=== PATIENT | male | born 1950 | race African-American/Black ===

== ENCOUNTER 2017-10-06 01:25 | Inpatient (IN) | payer OTHER ==
[~2017-10-06] VITALS: Ht 172.7 cm; Wt 72.6 kg
--- NOTE | ~2017-10-06 | EEG ---
[facility] [place] [address] ELECTROENCEPHALOGRAM Name: FRANSISCO ARAUZ JR Room #: 429-P ADM IN M.R.#: [id number] Admission: 10/06/17 Attend Phys: Gurdeep Noyola MD Discharge: Date of : 50 Report #: [id number] THIS REPORT FOR: //name// CC: Gurdeep Noyola [facility] DATE OF SERVICE: 10/06/2017 This patient is being evaluated for altered mental status. He has a history of seizure. EEG was done by placing the electrode by standard 10/20 system of electrode placement. Both referential and sequential montages were used for recording. Background activity is about 9 Hz and 30 microvolts. It is intermixed with theta range slowing on both sides. The patient became drowsy that was associated with bilateral slowing and vertex sharp waves. Photic stimulation was unremarkable. The patient continued to demonstrate sporadic random sharper activity coming from both sides. IMPRESSION: This is a moderately abnormal EEG because it is intermixed with theta range slowing on both sides. That is a nonspecific finding which can occur with encephalopathy, effect of psychotropic medication, dementia, etc. Some sporadic sharper activity is present, which may represent seizure, but no status epilepticus was noticed. Thank you very much for this referral. By: [id number] Calvin Segura MD /nt
--- NOTE | ~2017-10-06 | EKG ---
[address] [address] ELECTROCARDIOGRAM REPORT Name: JANIDarlingFRANSISCO Room #: 170-9 ADM IN M.R.#: [id number] Admission: 10/06/17 Attend Phys: Gurdeep Noyola MD Discharge: Date of : 50 Report #: [id number] THIS REPORT FOR: //name// 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
--- NOTE | ~2017-10-06 | HC ---
[facility] [place] [address] CONSULTATION Name: FRANSISCO ARAUZ JR Room #: 429-P ADM IN M.R.#: [id number] Admission: 10/06/17 Attend Phys: Gurdeep Noyola MD Discharge: Date of : 50 Report #: [id number] THIS REPORT FOR: //name// CC: Gurdeep Noyola [place] DATE OF SERVICE: 10/06/2017 HISTORY OF PRESENT ILLNESS: This is a 67-year-old male patient who is unable to provide any history at all. He was admitted with altered mental status. It looks like there may be some history that he passed out. He was found unresponsive. It is not clear what happened and what brought it on. Presently, he is severely confused. REVIEW OF SYSTEMS: I carried out 14-point review of system in this patient. This patient has seen multiple neurologists in the past including myself. He has a known history of dementia and seizure disorder. What medication he is on I am not certain. It looks like he is on Dilantin. The records indicate he is on Vimpat, but on the medicine sheet it indicates he is on Topamax. He cannot tell which medicine he is on. He does not know when his last seizure was. He apparently has an advanced dementia and has been seen by multiple physicians in the past. He has come in with rhabdo in the past and he had a history of acute renal injuries in the past, even now his creatinine is 2.0. He does not provide any other history and rest of the 14-point review of system was carried out from the record. He has a history of seizure. He has a history of dementia. He was on Keppra and it looks like Keppra has been discontinued. He has a kidney problem. Otherwise, the best history I can get it does not look like he is having any new eye, ENT, cardiac, respiratory, GI, , musculoskeletal, constitutional, dermatological, hematological, throat, allergic symptoms, but he barely talks and the history is very incomplete in that regard. He does have a psychiatric history in the past, how much that is contributing to the present problem is not clear. FAMILY HISTORY: Unavailable from him. SOCIAL HISTORY: [facility] in a [facility]. PAST MEDICAL HISTORY: Positive for seizure. PHYSICAL EXAMINATION: Indicate he does not talk, so it is not possible to tell about orientation, memory or fund of knowledge. Cranial nerve examination 2-12 was attempted. He will not cooperate with any of those examinations, but I do not see much focality. I tried to look at the fundus, he would not cooperate. It looks like he can move all 4 extremities, but I cannot do the sensory reflex or tone because he would not relax. He did not understand the instruction for [facility] [address] [place] [address] CONSULTATION Name: FRANSISCO ARAUZ Room #: 429-P ADM IN M.R.#: [id number] Admission: 10/06/17 Attend Phys: Gurdeep Noyola MD Discharge: Date of : 50 Report #: [id number] cerebellar sign. There is no meningeal sign. There is no carotid bruit, no thyroid mass. His pulses appear to be palpable. He has no edema, cyanosis or jaundice. He is reasonably well-developed individual who does not have any dysmorphic features of eyes, ears and face. I think he can hear and see. His cardiac examinations appear mostly unremarkable. He does not appear to be in respiratory difficulty or rhonchi on either side. His blood pressure is 158/62, respirations 11, pulse is 74, temperature is 98.7. LABORATORY DATA: His white count is normal at 7.7. He did have a CT scan of the head, which appear unremarkable. IMPRESSION: It is possible this patient had a seizure. Again, that will be a presumptive diagnosis. Other possibility including cardiac problem hypoglycemia, etc. is also a possibility, but since he has a known history of seizure it is possible he had a seizure. His Dilantin is subtherapeutic and is not clear what medicine he takes and how much. We need to find out from the Emergency Room and I will ask an order to find out and let me know. RECOMMENDATIONS: When we find out we will restart him on the same medication that he was at the [facility] for his [facility]. We will try to readjust the dose as necessary. We will get an EEG done to see if he has some active seizure activity going. He already had workup in the past and has a pretty significant dementia. We will not repeat all the workup and after we have a chance to look at his medication and his EEG, we will see what other workup need to be done. Thank you very much for this referral. By: [id number] Calvin Segura MD /nt
[~2017-10-06 01:25] MED LIST: ACETAMINOPHEN325 M1 PO; ARICEPT 5 MG TAB5 MG PO; ATIVAN0.5 MG PO; CALCIUM 600 +1 EAC1 PO; CELEXA 10 MG TA10 MG PO; CELEXA 20 MG TA20 M1 PO; COLACE100 MG PO; CYCLOBENZAPRINE5 MG PO; DILANTIN-1125 MG/5 M PO; DILANTIN100 MG PO; GERI-LANTA LIQ355 ML PO; IRON325 PO; KEPPRA1000 MG PO; LATANOPROST 0.2.5 ML OPHTHALMIC; MILK OF MA400 MG/5 M PO; MIRALAX255 GM PO; MYLANTA TABLET1 TA1 PO; OYSTER SHELL 51 EACH PO; PHENYTOIN125 MG/5 M PO; SEROQUEL 25 MG25 M1 PO; TESTOSTERON100 MG/ML IM; TIMOLOL MA0.25 %/5 M OPHTHALMIC; TOPAMAX 100 MG100 MG PO; TRAVATAN Z2.5 ML OPHTHALMIC; VIMPAT150 MG PO; VIMPAT200 MG PO; [UNRECOGNIZED DRUG - OTHER] TP
[2017-10-06 01:26] VITALS: BP 98/51
[2017-10-06 02:14] LABS: HEMOGLOBIN 13.8 gm/dL (14.0-18.0); MCH 30.6 pg (26.0-34.0); MCHC 33.7 g/dL (28.0-37.0); RBC 4.51 mil/uL (4.50-6.00); RDW 13.1 % (10.5-14.5); WBC 7.7 thou/uL (4.0-11.0)
[2017-10-06 02:23] LABS: ANION GAP 12 mmol/L (7-16); BUN 22 mg/dL (7-18); CALCIUM 9.2 mg/dL (8.5-10.1); CHLORIDE 109 mmol/L (98-107); CO2 22 mmol/L (21-32); GLUCOSE 139 mg/dL (74-106); POTASSIUM 3.8 mmol/L (3.5-5.1); SODIUM 143 mmol/L (136-145)
[2017-10-06 02:31] LABS: TROPONIN-I < 0.04 ng/mL (<0.06)
[2017-10-06 04:08] LABS: URINE BILIRUBIN NEGATIVE (Negative); URINE BLOOD NEGATIVE (Negative); URINE CLARITY CLEAR; URINE COLOR YELLOW; URINE GLUCOSE-RANDOM* NEGATIVE (Negative); URINE KETONES NEGATIVE (Negative); URINE LEUKOCYTES-REFLEX NEGATIVE (Negative); URINE NITRITE-REFLEX NEGATIVE (Negative); URINE PROTEIN (DIPSTICK) NEGATIVE (Negative); URINE UROBILINOGEN 0.2 E.U./dl (0.2-1.0)
[2017-10-06 10:08] LABS: CHOLESTEROL 162 mg/dL (<200); HDL CHOLESTEROL 57 mg/dL (>40); LDL CHOLESTEROL 87 mg/dL (<100); TC:HDL 2.8 Ratio (Not establshd); TRIGLYCERIDE 90 mg/dL (<150); VLDL 18 mg/dL (<40)
[2017-10-06 10:34] LABS: TSH 2.819 uIU/mL (0.358-3.740)
[2017-10-06 16:57] VITALS: BP 150/62
[2017-10-06 17:27] VITALS: BP 150/62
[2017-10-06 17:53] VITALS: BP 159/88
[2017-10-06] MEDS ORDERED: APTIOM400 MG PO (19:23)
[2017-10-06] MEDS ORDERED: UNICOMPLEX M TA1 TA1 PO (19:29)
[2017-10-06 20:00] VITALS: BP 140/69
[2017-10-06 23:53] VITALS: BP 133/61
[2017-10-07 03:46] VITALS: BP 146/59
[2017-10-07 06:35] LABS: CALCIUM 8.4 mg/dL (8.5-10.1); CREATININE 1.2 mg/dL (0.7-1.3); POTASSIUM 3.9 mmol/L (3.5-5.1)
[2017-10-07 07:07] VITALS: BP 153/74
[2017-10-07 08:23] VITALS: BP 153/74
[2017-10-07 08:54] LABS: ABSOLUTE NEUTROPHILS 4.8 thou/uL (1.4-8.2); BASOPHILS 0.5 % (0.0-2.0); EOSINOPHILS 1.6 % (0.0-3.0); HEMATOCRIT 39.3 % (42.0-52.0); HEMOGLOBIN 13.4 gm/dL (14.0-18.0); LYMPHOCYTES 26.2 % (24.0-44.0); MCH 30.5 pg (26.0-34.0); MCHC 34.1 g/dL (28.0-37.0); MCV 89.4 fL (80.0-100.0); MONOCYTES 10.8 % (1.0-8.0); PLATELET COUNT 152 thou/uL (150-400); POLYS 60.9 % (36.0-66.0); RDW 13.3 % (10.5-14.5); WBC 7.9 thou/uL (4.0-11.0)
[2017-10-07 20:05] VITALS: BP 129/61
[2017-10-08 05:05] VITALS: BP 142/69
[2017-10-08 07:30] VITALS: BP 142/70
[2017-10-08] MEDS ORDERED: PROTONIX 20 MG20 M1 PO (14:14)
== END 2017-10-08 15:52 | DRG 70 ==
LOC: ER 01:25 → EROBS 04:57 → 4E 04:57
PROVIDERS: Emergency Medicine; Internal Medicine; Nurse Practitioner
DX: G93.40 Encephalopathy, unspecified (principal); N17.0 Acute kidney failure with tubular necrosis; F03.91 Unspecified dementia, unspecified severity, with behavioral disturbance; G40.909 Epilepsy, unspecified, not intractable, without status epilepticus; H40.9 Unspecified glaucoma; Z87.891 Personal history of nicotine dependence; Z79.899 Other long term (current) drug therapy; Z88.8 Allergy status to other drugs, medicaments and biological substances
CPT/HCPCS: 10084

== ENCOUNTER 2018-04-08 20:55 | Emergency (ER) | payer OTHER ==
[~2018-04-08] VITALS: Ht 172.7 cm; Wt 69.0 kg
[~2018-04-08 20:55] MED LIST changes: +APTIOM400 MG PO; +PROTONIX 20 MG20 M1 PO; +UNICOMPLEX M TA1 TA1 PO
[2018-04-09 00:19] LABS: ABSOLUTE NEUTROPHILS 4.4 thou/uL (1.4-8.2); BASOPHILS 0.4 % (0.0-2.0); EOSINOPHILS 1.1 % (0.0-3.0); HEMATOCRIT 42.4 % (42.0-52.0); HEMOGLOBIN 14.6 gm/dL (14.0-18.0); LYMPHOCYTES 19.8 % (24.0-44.0); MCH 30.9 pg (26.0-34.0); MCHC 34.6 g/dL (28.0-37.0); MCV 89.4 fL (80.0-100.0); MONOCYTES 7.3 % (1.0-8.0); PLATELET COUNT 170 thou/uL (150-400); POLYS 71.4 % (36.0-66.0); RBC 4.74 mil/uL (4.50-6.00); RDW 13.4 % (10.5-14.5); WBC 6.2 thou/uL (4.0-11.0)
[2018-04-09 00:24] LABS: CALCIUM 9.3 mg/dL (8.5-10.1); CREATININE 1.5 mg/dL (0.7-1.3); POTASSIUM 3.8 mmol/L (3.5-5.1)
[2018-04-09 00:31] LABS: ALBUMIN 3.6 g/dL (3.4-5.0); TOTAL BILIRUBIN 0.2 mg/dL (<0.1-1.0); TOTAL PROTEIN 8.2 g/dL (6.4-8.2)
== END 2018-04-09 02:29 ==
LOC: ER 20:55
PROVIDERS: Physician Assistant
DX: G40.909 Epilepsy, unspecified, not intractable, without status epilepticus (principal); F03.91 Unspecified dementia, unspecified severity, with behavioral disturbance; Z88.8 Allergy status to other drugs, medicaments and biological substances; Z87.891 Personal history of nicotine dependence

== ENCOUNTER 2018-08-18 06:12 | Emergency (ER) | payer OTHER ==
[~2018-08-18] VITALS: Ht 172.7 cm; Wt 68.0 kg
[2018-08-18 06:50] LABS: URINE BILIRUBIN NEGATIVE (Negative); URINE BLOOD NEGATIVE (Negative); URINE CLARITY CLEAR; URINE COLOR YELLOW; URINE GLUCOSE-RANDOM* NEGATIVE (Negative); URINE KETONES NEGATIVE (Negative); URINE LEUKOCYTES-REFLEX NEGATIVE (Negative); URINE NITRITE-REFLEX NEGATIVE (Negative); URINE PROTEIN (DIPSTICK) NEGATIVE (Negative); URINE UROBILINOGEN 0.2 E.U./dl (0.2-1.0)
[2018-08-18 07:51] LABS: ABSOLUTE NEUTROPHILS 5.1 thou/uL (1.4-8.2); BASOPHILS 0.5 % (0.0-2.0); EOSINOPHILS 0.9 % (0.0-3.0); HEMATOCRIT 42.7 % (42.0-52.0); HEMOGLOBIN 14.9 gm/dL (14.0-18.0); LYMPHOCYTES 16.5 % (24.0-44.0); MCH 31.2 pg (26.0-34.0); MCV 89.2 fL (80.0-100.0); MONOCYTES 9.7 % (1.0-8.0); PLATELET COUNT 158 thou/uL (150-400); POLYS 72.4 % (36.0-66.0); RBC 4.78 mil/uL (4.50-6.00); RDW 13.2 % (10.5-14.5)
[2018-08-18 07:57] LABS: CALCIUM 9.1 mg/dL (8.5-10.1); CREATININE 1.5 mg/dL (0.7-1.3); POTASSIUM 4.3 mmol/L (3.5-5.1)
[2018-08-18 09:03] VITALS: BP 128/59
== END 2018-08-18 09:05 ==
LOC: ER 06:12
PROVIDERS: Emergency Medicine
DX: G40.409 Other generalized epilepsy and epileptic syndromes, not intractable, without status epilepticus (principal); F03.91 Unspecified dementia, unspecified severity, with behavioral disturbance; Z87.891 Personal history of nicotine dependence; Z88.8 Allergy status to other drugs, medicaments and biological substances

== ENCOUNTER 2018-12-12 00:45 | Emergency (ER) | payer OTHER ==
[~2018-12-12] VITALS: Ht 175.3 cm; Wt 81.7 kg
[2018-12-12 02:36] LABS: ABSOLUTE NEUTROPHILS 4.5 thou/uL (1.4-8.2); BASOPHILS 0.3 % (0.0-2.0); EOSINOPHILS 1.2 % (0.0-3.0); HEMATOCRIT 43.2 % (42.0-52.0); HEMOGLOBIN 14.3 gm/dL (14.0-18.0); LYMPHOCYTES 20.8 % (24.0-44.0); MCH 29.7 pg (26.0-34.0); MCHC 33.1 g/dL (28.0-37.0); MCV 89.8 fL (80.0-100.0); MONOCYTES 10.6 % (1.0-8.0); PLATELET COUNT 161 thou/uL (150-400); POLYS 67.1 % (36.0-66.0); RBC 4.81 mil/uL (4.50-6.00); RDW 13.6 % (10.5-14.5); WBC 6.7 thou/uL (4.0-11.0)
[2018-12-12 02:39] LABS: CALCIUM 9.1 mg/dL (8.5-10.1); CREATININE 1.5 mg/dL (0.7-1.3); POTASSIUM 4.4 mmol/L (3.5-5.1)
[2018-12-12 04:30] LABS: URINE BILIRUBIN NEGATIVE (Negative); URINE BLOOD NEGATIVE (Negative); URINE CLARITY CLEAR; URINE COLOR YELLOW; URINE GLUCOSE-RANDOM* NEGATIVE (Negative); URINE KETONES NEGATIVE (Negative); URINE LEUKOCYTES-REFLEX NEGATIVE (Negative); URINE NITRITE-REFLEX NEGATIVE (Negative); URINE PROTEIN (DIPSTICK) NEGATIVE (Negative); URINE SPECIFIC GRAVITY <= 1.005 (1.005-1.035); URINE UROBILINOGEN 0.2 E.U./dl (0.2-1.0)
[2018-12-12 07:32] VITALS: BP 132/78
== END 2018-12-12 07:34 | disposition home or self-care (01) ==
LOC: ER 00:45
PROVIDERS: Emergency Medicine
DX: R56.9 Unspecified convulsions (principal); F03.91 Unspecified dementia, unspecified severity, with behavioral disturbance; Z87.891 Personal history of nicotine dependence; Z88.8 Allergy status to other drugs, medicaments and biological substances; Z79.899 Other long term (current) drug therapy

== ENCOUNTER 2019-06-14 04:37 | Emergency (ER) | payer OTHER ==
[~2019-06-14] VITALS: Ht 175.3 cm; Wt 74.8 kg
[2019-06-14] MEDS ORDERED: OYSCO-500500 MG PO (04:44)
[2019-06-14 05:32] LABS: URINE BILIRUBIN NEGATIVE (Negative); URINE BLOOD NEGATIVE (Negative); URINE CLARITY CLEAR; URINE COLOR YELLOW; URINE GLUCOSE-RANDOM* NEGATIVE (Negative); URINE KETONES NEGATIVE (Negative); URINE LEUKOCYTES-REFLEX NEGATIVE (Negative); URINE NITRITE-REFLEX NEGATIVE (Negative); URINE PROTEIN (DIPSTICK) NEGATIVE (Negative); URINE UROBILINOGEN 0.2 E.U./dl (0.2-1.0)
[2019-06-14 05:43] LABS: CALCIUM 9.4 mg/dL (8.5-10.1); CREATININE 1.5 mg/dL (0.7-1.3); POTASSIUM 4.1 mmol/L (3.5-5.1)
[2019-06-14 06:15] LABS: BASOPHILS 0.5 % (0.0-2.0); EOSINOPHILS 1.6 % (0.0-3.0); HEMATOCRIT 39.3 % (42.0-52.0); HEMOGLOBIN 13.1 gm/dL (14.0-18.0); LYMPHOCYTES 19.8 % (24.0-44.0); MCH 30.4 pg (26.0-34.0); MCHC 33.4 g/dL (28.0-37.0); MCV 90.9 fL (80.0-100.0); PLATELET COUNT 153 thou/uL (150-400); POLYS 69.1 % (36.0-66.0); RBC 4.32 mil/uL (4.50-6.00); RDW 12.9 % (10.5-14.5); WBC 5.8 thou/uL (4.0-11.0)
[2019-06-14 08:25] VITALS: BP 126/67
== END 2019-06-14 08:25 ==
LOC: ER 04:37
PROVIDERS: Emergency Medicine
DX: G40.909 Epilepsy, unspecified, not intractable, without status epilepticus (principal); Z87.891 Personal history of nicotine dependence; Z88.8 Allergy status to other drugs, medicaments and biological substances

== ENCOUNTER 2019-12-25 03:01 | Emergency (ER) | payer OTHER ==
[~2019-12-25] VITALS: Ht 177.8 cm; Wt 72.6 kg
[~2019-12-25 03:01] MED LIST changes: +ATIVAN0.5 M1 PO; -ATIVAN0.5 MG PO; +OYSCO 500 PO
[2019-12-25 03:56] LABS: ABSOLUTE NEUTROPHILS 6.7 thou/uL (1.4-8.2); BASOPHILS 0.4 % (0.0-2.0); EOSINOPHILS 0.5 % (0.0-3.0); HEMATOCRIT 43.6 % (42.0-52.0); HEMOGLOBIN 14.6 gm/dL (14.0-18.0); LYMPHOCYTES 13.5 % (24.0-44.0); MCHC 33.5 g/dL (28.0-37.0); MCV 92.6 fL (80.0-100.0); MONOCYTES 8.1 % (1.0-8.0); PLATELET COUNT 138 thou/uL (150-400); POLYS 77.5 % (36.0-66.0); RDW 13.6 % (10.5-14.5); WBC 8.6 thou/uL (4.0-11.0)
[2019-12-25 04:06] LABS: CALCIUM 8.8 mg/dL (8.5-10.1); CREATININE 1.7 mg/dL (0.7-1.3); POTASSIUM 4.7 mmol/L (3.5-5.1)
[2019-12-25 04:16] LABS: URINE BILIRUBIN NEGATIVE (Negative); URINE BLOOD NEGATIVE (Negative); URINE CLARITY CLEAR; URINE COLOR YELLOW; URINE GLUCOSE-RANDOM* NEGATIVE (Negative); URINE KETONES NEGATIVE (Negative); URINE LEUKOCYTES-REFLEX NEGATIVE (Negative); URINE NITRITE-REFLEX NEGATIVE (Negative); URINE PROTEIN (DIPSTICK) NEGATIVE (Negative); URINE SPECIFIC GRAVITY 1.015 (1.005-1.035); URINE UROBILINOGEN 0.2 E.U./dl (0.2-1.0)
[2019-12-25 08:24] VITALS: BP 140/70
== END 2019-12-25 10:05 ==
LOC: ER 03:01
PROVIDERS: Emergency Medicine
DX: G40.409 Other generalized epilepsy and epileptic syndromes, not intractable, without status epilepticus (principal); F03.91 Unspecified dementia, unspecified severity, with behavioral disturbance; Z79.899 Other long term (current) drug therapy; Z88.8 Allergy status to other drugs, medicaments and biological substances; Z87.891 Personal history of nicotine dependence